=== PATIENT | female | born 1945 | race African-American/Black ===

== ENCOUNTER 2018-10-13 17:44 | Inpatient (IN) | payer MEDICARE, OTHER ==
[2018-10-13 19:11] LABS: #Eosinphils 0.1 thou/uL (0.0-0.7); #Lymphocytes 2.4 thou/uL (1.20-3.40); #Monocytes 0.6 thou/uL (0.11-0.59); #Neutrophils 3.3 thou/uL (1.40-6.50); %Basophils 0.5 % (0.0-1.0); %Eosinophils 2.1 % (0.0-10.0); %Lymphocytes 37.3 % (21.0-51.0); %Monocytes 8.7 % (0.0-10.0); %Neutrophils 51.3 % (42.0-75.0); Hemoglobin 12.5 g/dL (14.0-18.0); Mean Corpuscular HGB CONC 32.8 g/dL (32.0-36.0); Mean Corpuscular Hemoglobin 29.1 pg (27.0-31.0); Mean Corpuscular Volume 88.6 fL (78.0-98.0); Mean Platelet Volume 8.5 fL (7.4-10.4); Platelet Count 266 thou/uL (130-400); RBC Distribution Width 11.8 % (11.5-14.5); White Blood Cell (WBC) Count 6.4 thou/uL (4.8-10.8)
[2018-10-13 19:16] LABS: PTT 27.8 SEC (22.9-36.1); Prothrombin Time 13.4 SEC (12.0-14.7)
[2018-10-13 19:33] LABS: ALT (SGPT) 10 U/L (8-55); AST (SGOT) 17 U/L (5-34); Albumin 4.3 g/dL (3.4-4.8); Alkaline Phosphatase 66 U/L (40-150); Anion Gap 12 mmol/L (10-20); BUN (Urea Nitrogen) 16 mg/dL (8.4-25.7); Bilirubin, Total 0.3 mg/dL (0.2-1.2); CK (CPK) 75 U/L (30-200); Calc. Creatinine Clearance 0 mL/min (70-130); Calcium 9.6 mg/dL (7.8-10.44); Carbon Dioxide 29 mmol/L (23-31); Chloride 103 mmol/L (98-107); Estimated GFR-MDRD 69; Globulin 3.1 g/dL (2.4-3.5); Glucose 130 mg/dL (83-110); Lipase 145 U/L (8-78); Potassium 4.4 mmol/L (3.5-5.1); Protein, Total 7.4 g/dL (5.8-8.1); Sodium 140 mmol/L (136-145)
[2018-10-13 19:34] LABS: Acetaminophen Less than 6.0 mcg/mL (10.0-30.0); Alcohol Less than 10 mg/dL (Less than 10); Salicylate Less than 8.0 mg/dL (15.0-30.0)
[2018-10-13 20:00] LABS: Bilirubin Negative (Negative); Blood, Urine Negative (Negative); Clarity CLEAR (Clear); Glucose, Urine (Dipstick) Negative (Negative); Leukocyte Negative (Negative); Nitrite Negative (Negative); Protein, Urine (Dipstick) Negative (Neg-Trace); Specific Gravity, Urine 1.016 (1.002-1.036); Urobilinogen 0.2 mg/dL (0.2-1.0); pH, Urine 6.5 (5.0-9.0)
[2018-10-13 20:10] LABS: Amphetamine Not Detected (NotDetected); Barbiturates Screen Not Detected (NotDetected); Benzodiazepine Screen Not Detected (NotDetected); Cocaine Metabolite Screen Not Detected (NotDetected); Medtox Control Line Valid? VALID (VALID); Medtox Reader # READER 4; Methadone Not Detected (NotDetected); Methamphetamine Not Detected (NotDetected); Opiate Screen Not Detected (NotDetected); Oxycodone Screen Not Detected (NotDetected); Phencyclidine (PCP) Not Detected (NotDetected); THC/Cannabinoid Screen Not Detected (NotDetected); Tricyclic Screen Not Detected (NotDetected)
[2018-10-13] MEDS ORDERED: Acetaminophen 325 MG TAB PO PRN (21:15)
[2018-10-13] MEDS ORDERED: HumaLOG 300 UNITS/3 ML VIAL SC PRN (21:15)
[2018-10-13] MEDS ORDERED: Labetalol HCl 100 MG/20 ML VIAL SLOW IVP PRN (21:15)
[2018-10-13] MEDS ORDERED: hydrALAZINE 20 MG/ML VIAL SLOW IVP PRN (21:15)
[2018-10-13] MEDS ORDERED: Dextrose 50% Abboject 50 ML SYRINGE SLOW IVP PRN (21:15)
[2018-10-13] MEDS ORDERED: Dextrose 5% in Water 1,000 ML IV PRN (21:15)
[2018-10-13] MEDS ORDERED: Ondansetron ODT 4 MG TAB SL PRN (21:24)
[2018-10-13] MEDS ORDERED: Ondansetron PF 4 MG/2 ML Vial IVP PRN (21:24)
[2018-10-13] MEDS ORDERED: Nitroglycerin 2% Ointment 1 INCH/1 GM Packet TOP PRN (21:24)
[2018-10-13] MEDS ORDERED: Famotidine 20 MG TAB PO SCH (21:30)
[2018-10-13] MEDS ORDERED: Atorvastatin Calcium 40 MG TAB PO SCH (21:30)
[2018-10-13 23:33] VITALS: BMI 31.2
[2018-10-14 05:44] LABS: #Basophils 0.1 thou/uL (0.0-0.2); #Eosinphils 0.1 thou/uL (0.0-0.7); #Lymphocytes 2.6 thou/uL (1.20-3.40); #Monocytes 0.9 thou/uL (0.11-0.59); %Basophils 0.9 % (0.0-1.0); %Eosinophils 1.6 % (0.0-10.0); %Lymphocytes 29.4 % (21.0-51.0); %Monocytes 10.7 % (0.0-10.0); %Neutrophils 57.3 % (42.0-75.0); Hemoglobin 11.3 g/dL (14.0-18.0); Mean Corpuscular HGB CONC 33.3 g/dL (32.0-36.0); Mean Corpuscular Hemoglobin 29.4 pg (27.0-31.0); Mean Corpuscular Volume 88.1 fL (78.0-98.0); Mean Platelet Volume 8.7 fL (7.4-10.4); Platelet Count 245 thou/uL (130-400); RBC Distribution Width 11.6 % (11.5-14.5); Red Blood Cell (RBC) Count 3.84 mill/uL (4.70-6.10); White Blood Cell (WBC) Count 8.8 thou/uL (4.8-10.8)
[2018-10-14] MEDS: HumaLOG 300 UNITS/3 ML VIAL SC PRN ×2 (05:44→17:12)
[2018-10-14 06:06] LABS: Anion Gap 13 mmol/L (10-20); BUN (Urea Nitrogen) 15 mg/dL (8.4-25.7); Calc. Creatinine Clearance 83 mL/min (70-130); Calcium 9.3 mg/dL (7.8-10.44); Carbon Dioxide 26 mmol/L (23-31); Cardiac Risk 4.6 (Less than 4.5); Chloride 104 mmol/L (98-107); Cholesterol 171 mg/dl (< 200 Desired); Estimated GFR-MDRD Greater than 90; Glucose 178 mg/dL (83-110); HDL Cholesterol 37 mg/dL (>60 Neg Risk); LDL Cholesterol, Calculated 94 mg/dL; Potassium 3.8 mmol/L (3.5-5.1); Sodium 139 mmol/L (136-145); Triglycerides 198 mg/dL (Less than 150)
[2018-10-14] MEDS ORDERED: Labetalol HCl 100 MG/20 ML VIAL SLOW IVP PRN (07:06)
[2018-10-14] MEDS ORDERED: Enoxaparin Sodium 40 MG/0.4 ML SYRINGE SC SCH (09:00)
[2018-10-14] MEDS: Enoxaparin Sodium 40 MG/0.4 ML SYRINGE SC SCH (09:06)
[2018-10-14] MEDS: Famotidine 20 MG TAB PO SCH ×2 (09:06→20:57)
[2018-10-14] MEDS: Aspirin 325 mg Enteric Coated Tablet PO SCH (09:06)
--- NOTE | 2018-10-14 09:45 | HP ---
PRIMARY CARE PHYSICIAN: Dr. Tuttle in [place]. CHIEF COMPLAINT: "I'm numb on my right side." HISTORY OF PRESENT ILLNESS: Ms. Loweyr is a pleasant 73-year-old female who has a history of hypertension and diabetes. She was in her usual state of health until Saturday when she noticed a kind of tingling in her right hand and stinging, she says. She asked her to rub her arm and it seemed to get better. She says she did not really think much of it until it happened again this morning. She noticed that it was started off in her hand again and then it went up into her right side of her face and down into her arm and all the way down she says into the bend of her right leg. She says she tried to walk and it seemed like her leg was going to give out on her and she also says that her arm felt a little bit heavy as well. She also says she "wasn't feeling very well." Her daughter called around about the same time and she told her daughter that she just was not feeling well and that she was having some numbness on the right side and her daughter told her that she needed to go to the hospital. They took her to the hospital in [place] and she was transferred here for further evaluation. The patient says she still has a little bit of numbness on the right side of her face, but the other symptoms have essentially gone away. She denies having any chest pain or shortness of breath. She denies any dizziness or feeling lightheaded. No palpitations. She does complain of feeling a bit nauseated, but she attributes that to not eaten all day today. It is also noted that her blood pressure is elevated, but she says her blood pressure is usually well controlled. REVIEW OF SYSTEMS: All systems were reviewed and are negative except for that mentioned in the history of present illness. PAST MEDICAL HISTORY: Significant for hypertension and diabetes. PAST SURGICAL HISTORY: She has had a bilateral tubal ligation. ALLERGIES: NO KNOWN DRUG ALLERGIES. SOCIAL HISTORY: She is a nonsmoker and nondrinker. She is , has three children and she does not want to be resuscitated. FAMILY HISTORY: Significant for cancer in her mother. Father had diabetes and a sister had cancer. CURRENT MEDICATIONS: Include; 1. Amitriptyline 10 mg daily. 2. Simvastatin 10 mg a day. 3. Tramadol 50 mg at bedtime. 4. Vitamin C 500 mg daily. 5. Kinzers-3 once a day. 6. Mirapex 0.125 mg at bedtime. 7. Vitamin D3 5000 units once a week. 8. Metoprolol 25 mg 1/2 tablet twice a day. 9. Metformin 1000 mg twice a day. 10. Amlodipine 5 mg daily. 11. Trulicity 1.5 mg per 5 mL one injection every other week. 12. Meloxicam 15 mg daily. 13. Gabapentin 600 mg twice. 14. Glimepiride 4 mg twice daily. 15. Lisinopril/hydrochlorothiazide 20/12.5 one tablet daily. PHYSICAL EXAMINATION: GENERAL: She is alert and oriented. She appears to be in no acute distress. She is well developed and well nourished. VITAL SIGNS: Her blood pressure is ranging from 186-248/100. Her diastolic was as high as 134, heart rate is 78, respiratory rate of 22, temperature is 97.6. HEENT: Her pupils are equal, round, and reactive. Extraocular muscles are intact. Her sclerae are anicteric. Throat, no erythema, no exudates. NECK: No adenopathy, no bruits. LUNGS: Clear to auscultation. There is no wheezing, no rales, no rhonchi. CARDIOVASCULAR: She has a normal S1 and S2. There is no S3 or S4. No murmurs, clicks, no rubs. ABDOMEN: Soft. It is nontender, nondistended. Positive for bowel sounds. There is no rebound, no guarding, no organomegaly. EXTREMITIES: There is no clubbing or cyanosis. No edema. No joint effusions. NEUROLOGIC: Her cranial nerves 2 through 12 are grossly intact. Muscle strength is 5/5. However, her right upper extremity seemed slightly bit weaker than the left and the right leg seemed a bit weaker than the left, but the strength is 5/5. The reflexes are symmetric, but diminished bilaterally. SKIN AND INTEGUMENT: There are no skin changes, no rash. LABORATORY DATA: White blood cell count was 6.4, hemoglobin 12.5, hematocrit was 38.1, and platelet count was 266. INR was 1.0. Chemistry; sodium 140, potassium 4.4, chloride is 103, CO2 is 29, BUN of 16, creatinine 1.05, glucose is 130. Natriuretic peptide is 137. Her EKG by my reading is sinus rhythm, the rate is 85. There are some nonspecific ST wave changes. ASSESSMENT: This is a pleasant 73-year-old female who presents to the emergency room with right-sided numbness. She did have some mild weakness in the right upper extremity. She also had extremely elevated blood pressure. She likely is experiencing a transient ischemic attack as a result of hypertensive urgency. 1. For transient ischemic attack, she will be placed in observation in the stroke unit. We will get an MRI to see whether or not she has had a completed stroke. Get carotid Dopplers as well as an echocardiogram and monitor her on telemetry. She will also need better blood pressure control. 2. Hypertensive urgency. Restart her home medications as well as p.r.n. medicines for blood pressure and we will titrate or adjust her medications as needed. 3. Diabetes mellitus. Again, start her home medications with the exception of metformin in the event that she needs contrasted study and place her on a sliding scale insulin. 4. We will also place her on aspirin daily, full dose, and deep venous thrombosis and gastrointestinal prophylaxis. Job ID: [id number]
--- NOTE | 2018-10-14 11:51 | MRI ---
FBrain MRI without contrast: 10/14/2018 HISTORY: Right upper extremity weakness and numbness TECHNIQUE: Multiplanar multisequence MR imaging of the brain is obtained without contrast FINDINGS: On the diffusion weighted imaging there is a punctate focus of increased signal intensity j ust posterior and inferior to the basal ganglia on the left, along the inferior margin of the left th alamus posteriorly measuring in the 3-4 mm range. Exact etiology is uncertain given its small size an d location. In addition, just superior to this are areas of T2 and FLAIR hyperintensity suggesting pr ior insult on the basis of small vessel disease. A punctate focus of acute infarction is a possibilit y. The diffusion weighted imaging is otherwise grossly unremarkable. The gradient echo imaging demonstrate numerous scattered foci of blooming artifact within the frontal lobes, parietal lobes, and temporal lobes, suggesting remote microhemorrhage on the basis of small v essel disease and/or hypertension. There is extensive periventricular, deep, and subcortical white matter T2 and FLAIR hyperintensity. S imilar patchy increased signal intensity noted within the jaime, evidence of significant small vessel disease. Arterial flow voids at the axial level of the skull base appear grossly unremarkable on the T2-weight ed imaging. Regional bone marrow signal intensity appears within normal limits. Empty sella turcica noted. IMPRESSION: Prominent small vessel disease. Questionable punctate acute infarction on the left as det elle above.
[2018-10-14] MEDS ORDERED: cloNIDine 0.1 MG TAB PO PRN (13:27)
[2018-10-14] MEDS ORDERED: Non-Formulary Item 1 EACH (Gabapentin [Gabapentin] 600 MG) PO SCH (13:30)
[2018-10-14] MEDS ORDERED: Amlodipine 5 MG TAB PO SCH (13:30)
[2018-10-14] MEDS: Glimepiride 4 MG TAB PO SCH (17:12)
--- NOTE | 2018-10-14 18:07 | PDOC.PN ---
- Subjective Encounter Start Date: 10/14/18 Encounter Start Time: 10:30 Patient seen and examined for Acute CVA. Rt UE paresthesias improving. No new focal deficit. No new complaints. No overnight events - Objective Resuscitation Status - Order Detail: 10/13/18 20:21 Resuscitation Status Routine Resuscitation Status: DNAR: NO Resuscitation Discussed with: Per the patient request MAR Reviewed: Yes Vital Signs & Weight: Vital Signs (12 hours) Temp Pulse Resp BP BP Pulse Ox 10/14/18 17:56 192/102 H 10/14/18 15:39 98.6 F 78 20 195/93 H 95 10/14/18 14:10 65 138/65 10/14/18 11:25 98.2 F 65 16 138/59 L 99 10/14/18 09:06 176/73 H 10/14/18 08:06 98 10/14/18 07:57 97.6 F 54 L 16 185/84 H 98 Weight Weight 187 lb 11.2 oz I&O: 10/13/18 10/14/18 10/15/18 06:59 06:59 06:59 Intake Total 1100 Balance 1100 Result Diagrams: 10/14/18 05:03 10/14/18 05:03 Additional Labs: Accuchecks 10/14/18 05:27 POC Glucose 176 H Radiology Reviewed by me: Yes (MRI - Acute CVA) EKG Reviewed by me: Yes (Tele SR) Phys Exam - Physical Examination Constitutional: NAD HEENT: PERRLA Neck: no JVD Respiratory: no wheezing, no rales, no rhonchi, clear to auscultation bilateral Cardiovascular: RRR, no rub no heaves/pulsations Gastrointestinal: soft, non-tender, no distention, positive bowel sounds Musculoskeletal: no edema, pulses present Neurological: moves all 4 limbs CN 2-12 normal, Rt UE numbness + Psychiatric: normal affect, A&O x 3 Skin: no rash Dx/Plan - Plan PT/OT, DVT proph w/lovenox, DVT proph w/SCDs 1. Acute CVA 2. DM2 3. HTN - uncontrolled 4. CAD 5. Obesity BMI 31.2 PLAN: Cont ASA/Statins Await Echo Stroke team Increase Amlodipine Add Losartan Counselled Resume selected home meds Review of Systems - Review of Systems Respiratory: negative: Cough, Dry, Shortness of Breath, Hemoptysis, SOB with Excertion, Pleuritic Pain, Sputum, Wheezing Cardiovascular: negative: chest pain, palpitations, orthopnea, paroxysmal nocturnal dyspnea, edema, light headedness, other - Medications/Allergies Allergies/Adverse Reactions: Allergies Allergy/AdvReac Type Severity Reaction Status Date / Time No Known Allergies Allergy Verified 10/13/18 23:11 Medications: Current Medications Acetaminophen (Tylenol) 650 mg PO Q4H PRN PRN Reason: Headache/Fever/Mild Pain (1-3) Amlodipine Besylate (Norvasc) 5 mg PO BID [facility] Aspirin (Ecotrin) 325 mg PO DAILY [facility] Last Admin: 10/14/18 09:06 Dose: 325 mg Atorvastatin Calcium (Lipitor) 40 mg PO HS [facility] Clonidine (Catapres) 0.1 mg PO Q4H PRN PRN Reason: Systolic BP > 180 Last Admin: 10/14/18 17:56 Dose: 0.1 mg Dextrose/Water (Dextrose 50%) 25 gm SLOW IVP PRN PRN PRN Reason: Hypoglycemia Enoxaparin Sodium (Lovenox) 40 mg SC 0900 [facility] Last Admin: 10/14/18 09:06 Dose: 40 mg Famotidine (Pepcid) 20 mg PO BID [facility] Last Admin: 10/14/18 09:06 Dose: 20 mg Gabapentin (Neurontin) 1,200 mg PO QAM [facility] Gabapentin (Neurontin) 600 mg PO QPM [facility] Glimepiride (Amaryl) 4 mg PO BID-AC [facility] Last Admin: 10/14/18 17:12 Dose: 4 mg Glucagon (Glucagon) 1 mg IM PRN PRN PRN Reason: Hypoglycemia Hydralazine HCl (Apresoline) 10 mg SLOW IVP Q4H PRN PRN Reason: SBP Greater Than 180 Dextrose/Water (D5w) 1,000 mls @ 0 mls/hr IV .Q0M PRN PRN Reason: Hypoglycemia Insulin Human Lispro (Humalog) 0 units SC .MODERATE SLIDING SC PRN PRN Reason: Moderate Correctional Scale Last Admin: 10/14/18 17:12 Dose: 6 unit Insulin Human Lispro (Humalog) 0 units SC .BEDTIME SLIDING SC PRN PRN Reason: Bedtime Correctional Scale Labetalol HCl (Normodyne) 10 mg SLOW IVP Q4H PRN PRN Reason: Systolic BP > 180 Losartan Potassium (Cozaar) 25 mg PO DAILY [facility] Losartan Potassium (Cozaar) 25 mg PO ONE [facility] Metoprolol Tartrate (Lopressor) 25 mg PO BID [facility] Sodium Chloride (Flush - Normal Saline) 10 ml IVF PRN PRN PRN Reason: Saline Flush Sodium Chloride (Flush - Normal Saline) 10 ml IVF Q12HR [facility] Last Admin: 10/14/18 09:06 Dose: Not Given
[2018-10-14] MEDS ORDERED: Losartan 25 MG TAB PO SCH (18:15)
[2018-10-14] MEDS: Amlodipine 5 MG TAB PO SCH (20:56)
[2018-10-14] MEDS: Metoprolol Tartrate 25 MG TAB PO SCH (20:57)
[2018-10-14] MEDS ORDERED: Atorvastatin Calcium 40 MG TAB PO SCH (21:00)
[2018-10-14] MEDS ORDERED: Gabapentin 300 MG CAP PO SCH (21:00)
[2018-10-14] MEDS ORDERED: Metoprolol Tartrate 25 MG TAB PO SCH (21:00)
--- NOTE | 2018-10-14 22:20 | CON ---
DATE OF CONSULTATION: 10/14/2018 CONSULTING PHYSICIAN: Hospitalist Service. IMPRESSION: 1. Lacunar stroke with improving right-sided numbness. 2. Moderately extensive silent ischemic injury. 3. Diabetes. 4. Hypertension. PLAN: 1. Start aspirin 325 mg per day. 2. Start Lipitor 40 mg per day. 3. Outpatient carotid ultrasound. 4. Office followup to review results. HISTORY OF PRESENT ILLNESS: Ms. Lowery is a 73-year-old black female who presented to [facility] with complaints of right face, arm and leg numbness. She had initial CT scan of the brain which was negative. She was transferred here for evaluation. Her MRI of the brain showed a punctate area of acute ischemia on the left side consistent with lacunar stroke. Her symptoms have improved significantly. She is getting around the room independently. Her EKG showing normal sinus rhythm. She has no cardiac history. Echocardiogram was completed, but the results are pending. Her carotids have not been evaluated. She denies any past history of stroke symptoms. PAST MEDICAL HISTORY: As listed above. ALLERGIES: NONE. SOCIAL HISTORY: She is . No tobacco or alcohol use. FAMILY HISTORY: Noncontributory. REVIEW OF SYSTEMS: Ten-system review of systems is otherwise negative. PHYSICAL EXAMINATION: GENERAL: She is a well-nourished elderly lady, in no distress. VITAL SIGNS: Stable. She has been afebrile. HEENT: Pupils are equal and reactive. Conjunctivae are clear. Oropharynx is clear. NECK: Supple. No lymphadenopathy. EXTREMITIES: No cyanosis, clubbing, or edema. NEUROLOGIC: She is alert and appropriate. Her speech is fluent and clear. Cranial nerves are intact. Motor exam shows good strength bilaterally. Sensation is subjectively decreased in the tips of the fingers of the right hand. No tremor or dysmetria is present. She can walk independently. IMAGING: EKG, normal sinus rhythm. LABORATORY DATA: Laboratory studies were reviewed. SUMMARY: A 73-year-old woman with a lacunar infarct which is presented with some minor symptoms that are improving. We can proceed with preventative measures and complete her vascular workup as an outpatient. Job ID: [id number]
[2018-10-15] MEDS: Amlodipine 5 MG TAB PO SCH (07:45)
[2018-10-15] MEDS: Metoprolol Tartrate 25 MG TAB PO SCH (08:35)
[2018-10-15] MEDS: Aspirin 325 mg Enteric Coated Tablet PO SCH (08:37)
[2018-10-15] MEDS: Glimepiride 4 MG TAB PO SCH (08:37)
[2018-10-15] MEDS: Famotidine 20 MG TAB PO SCH (08:37)
[2018-10-15] MEDS: Enoxaparin Sodium 40 MG/0.4 ML SYRINGE SC SCH (08:38)
[2018-10-15] MEDS ORDERED: Amlodipine 5 MG TAB PO SCH (09:00)
[2018-10-15] MEDS ORDERED: Losartan 25 MG TAB PO SCH (09:00)
[2018-10-15] MEDS ORDERED: Gabapentin 400 MG CAP PO SCH (09:00)
[2018-10-15 11:24] VITALS: BP 137/64; TEMP 97.4
[2018-10-15] MEDS: HumaLOG 300 UNITS/3 ML VIAL SC PRN (13:26)
--- NOTE | 2018-10-15 21:46 | PDOC.EVN ---
Event Note - Event Note Event Note: DC summary dicated. Final diagnosis: 1. Acute CVA involving left thalamus 2. DM2 3. HTN - uncontrolled 4. CAD 5. Obesity BMI 31.2
--- NOTE | 2018-10-15 22:04 | DIS ---
DATE OF ADMISSION: 10/13/2018 DATE OF DISCHARGE: 10/15/2018 DISCHARGE DISPOSITION: Home. FOLLOWUP: 1. Follow up with primary care physician, Dr. Tejas Tuttle in 1 week. 2. Follow up with Dr. Jorge Leone in 2 to 3 weeks. ALLERGIES: NO KNOWN DRUG ALLERGIES. THE PATIENT WAS SEEN AND EXAMINED ON THE DAY OF DISCHARGE. DENIES ANY NEW COMPLAINTS. NO CHEST PAIN, SHORTNESS OF BREATH, OR PALPITATIONS. DISCHARGE MEDICATIONS: 1. Aspirin 325 mg daily (new medication). 2. Amlodipine 10 mg daily (dose increased). 3. Lipitor 40 mg at bedtime (new medication). 4. All other home medications were left unchanged including gabapentin, glimepiride, lisinopril and hydrochlorothiazide 20/12.5 daily, metformin 1000 mg daily, and metoprolol tartrate 12.5 mg b.i.d. INPATIENT SALES ENABLEMENT MANAGER: Neurology, Dr. Leone. SIGNIFICANT LABS: Triglyceride 198, cholesterol 171, LDL of 94. BNP 137. WBC 6.4 with hemoglobin 12.5. Urine drug screen was negative. Troponins were negative. TSH was 1.0. Echocardiogram showed left ventricular ejection fraction of 60% to 65% with diastolic dysfunction, mild mitral regurgitation and mild tricuspid regurgitation. MRI of the brain showed left thalamic CVA measuring 3-4 mm size with prominent small-vessel disease. BRIEF HOSPITAL COURSE: The patient is a 73-year-old female with hypertension, diabetes mellitus type 2, obesity with a BMI of 31, presented to the emergency room with right-sided numbness. Please refer to the history and physical for further details. The patient was admitted to the hospital with a diagnosis of acute CVA. She underwent stroke workup as discussed above. She was evaluated by Neurology, Dr. Leone. Dr. Leone recommended aspirin, which has been started. She was found to have abnormally elevated blood pressure up to 190s to 200s range. This improved after increase in amlodipine. Her blood pressure on the day of discharge is 137/64, 142/67 with O2 saturation of 100% on room air. Lifestyle modification was emphasized. Statins has been started. PLAN: Plan of care was discussed with the patient and the family in detail. Job ID: [id number]
== END 2018-10-15 13:58 | disposition home or self-care (01) | DRG 66 ==
LOC: EDSEX → ERS 17:44 → 2SE 19:20
PROVIDERS: ADMIT Family Medicine; ATTEND Family Medicine
DX: I63.81 Other cerebral infarction due to occlusion or stenosis of small artery (principal); Z66 Do not resuscitate; R29.702 NIHSS score 2; E11.9 Type 2 diabetes mellitus without complications; I10 Essential (primary) hypertension; I16.0 Hypertensive urgency; R20.0 Anesthesia of skin; I25.10 Atherosclerotic heart disease of native coronary artery without angina pectoris; E66.9 Obesity, unspecified; Z68.31 Body mass index [BMI] 31.0-31.9, adult; Z79.84 Long term (current) use of oral hypoglycemic drugs; Z79.899 Other long term (current) drug therapy
CPT/HCPCS: 36415; 36416; 70551; 80048; 80053; 80061; 80306; 80307; 81003; 82140; 82550; 83690; 83880; 84443; 84484; 85025; 85610; 85730; 93005; 93306; 96360; J1650